=== PATIENT | male | born 1985 | race Caucasian/White ===

== ENCOUNTER 2018-10-02 11:43 | Emergency (ER) | payer OTHER ==
[~2018-10-02] VITALS: Ht 160 cm; Wt 77.6 kg
[~2018-10-02 11:43] MED LIST: AMOX500 PO; ASCO500 PO; Baclofen10 MG PO; Colace100 MG PO; ERYT.5TO RIGHTEYE; LEVSOD100; LEVSOD100 PO; LEVSOD75 PO; LORA10ER; LORA10ER PO; Mupirocin22 GM TP; RXPROM25 PO; Veetids 500500 MG PO; Zofran Odt4 MG PO
[2018-10-02 12:14] LABS: BASOPHILS ABSOLUTE AUTO 0.11 K/mm3 (0.00-0.23); BASOPHILS PERCENT AUTO 1 % (0-2); EOSINOPHILS ABSOLUTE AUTO 0.03 K/mm3 (0.00-0.68); EOSINOPHILS PERCENT AUTO 0 % (0-6); Hematocrit 51.9 % (37.0-53.0); Hemoglobin 17.8 g/dL (13.5-17.5); IMMATURE GRAN ABSOLUTE AUTO 0.05 K/mm3 (0.00-0.10); IMMATURE GRAN PERCENT AUTO 0 % (0-1); LYMPHOCYTES ABSOLUTE AUTO 0.99 K/mm3 (0.84-5.20); LYMPHOCYTES PERCENT AUTO 7 % (21-46); MONOCYTES ABSOLUTE AUTO 0.62 K/mm3 (0.16-1.47); MONOCYTES PERCENT AUTO 4 % (4-13); Mean Corpuscular HGB 32.1 pg (26.0-34.0); Mean Corpuscular HGB Conc 34.3 g/dL (31.5-36.5); Mean Corpuscular Volume 94 fL (80-100); Mean Platelet Volume 9.1 fL (9.1-12.4); NEUTROPHILS ABSOLUTE AUTO 12.22 K/mm3 (1.96-9.15); NEUTROPHILS PERCENT AUTO 87 % (41-73); Platelet Count 298 K/mm3 (150-400); RDW Coefficient Variation 13.8 % (11.7-14.2); RDW Standard Deviation 47.8 fL (35.1-46.3); Red Blood Cell Count 5.55 M/mm3 (4.30-5.90); White Blood Cell Count 14.02 K/mm3 (4.00-11.30)
[2018-10-02 12:39] LABS: Alanine Aminotransfer (ALT/SGP 49 U/L (12-78); Albumin/Globulin Ratio 0.9 (0.8-1.8); Alk Phos 106 U/L (50-136); Anion Gap 7 mmol/L (6-16); Aspartate Aminotrans (AST/SGOT 27 U/L (12-37); Bilirubin, Total 0.4 mg/dL (0.1-1.0); Blood Urea Nitrogen 10 mg/dL (8-24); Bun/Creatinine Ratio 14.2 (12.0-20.0); CO2, Blood 26 mmol/L (21-32); Chloride, Blood 106 mmol/L (98-108); Globulin, Blood 4.3 g/dL (2.2-4.0); Glomerular Filtration Rate >60 (60-); Glucose, Blood 132 mg/dL (70-99); Potassium, Blood 3.8 mmol/L (3.5-5.5); Sodium, Blood 139 mmol/L (136-145); Total Protein, Blood 8.3 g/dL (6.4-8.2)
[2018-10-02] MEDS ORDERED: ERGO400 PO (12:47)
[2018-10-02 13:04] LABS: Source, Urine Clean Catch
[2018-10-02 13:08] LABS: Bilirubin, Urine Neg (Neg); Blood, Urine 1+ (Neg); Glucose Qualitative, Urine Neg (Neg); Ketones, Urine Neg (Neg); Leukocyte Esterase, Urine 1+ (Neg); Nitrite, Urine Neg (Neg); Protein, Urine Neg (Neg); Urobilinogen, Urine 1+ (Normal)
[2018-10-02 13:21] LABS: Appearance, Urine Clear (Clear); Color, Urine Yellow (P-Yellow)
[2018-10-02 13:22] LABS: Bacteria Rare /hpf; Mucus Light (0-Heavy); Red Blood Cells, Urine 0-2 /hpf (0-2); Squamous Epithelial Cells Rare /hpf (Few); White Blood Cells, Urine 0-2 /hpf (0-5)
[2018-10-02] MEDS ORDERED: ONDA4ODT MM (14:54)
== END 2018-10-02 15:19 | disposition home or self-care (01) ==
LOC: ER 11:43
PROVIDERS: Physician Assistant
DX: K59.00 Constipation, unspecified (principal); K43.9 Ventral hernia without obstruction or gangrene; R11.2 Nausea with vomiting, unspecified; E03.9 Hypothyroidism, unspecified; Z88.8 Allergy status to other drugs, medicaments and biological substances; Z79.899 Other long term (current) drug therapy
CPT/HCPCS: 36415; 74176; 80053; 81001; 83690; 85025; 87086; 96361; 96374; 99284-25; J2550; J3010; J7030

== ENCOUNTER 2020-01-02 06:19 | Day surgery (SDC) | payer OTHER ==
[~2020-01-02] VITALS: Ht 160 cm; Wt 74.6 kg
[~2020-01-02 06:19] MED LIST changes: +ERGO400 PO; +ONDA4ODT MM; +TERB250 PO
--- NOTE | 2020-01-02 07:06 | NUR ---
Ambulatory in Day Surgery WITH MOTHER AT SIDE. History, Chart, Medications and Allergies reviewed before start of procedure.Patient confirms NPO status and agrees with scheduled surgery. Patient reports completing Chlorhexadine shower X2 prior to admission to hospital.Surgical site prepped with 2% Chlorhexidine cloth wipe. Patient States Post-Procedure ride home has been arranged WITH MOTHER. MOTHER HAS PT BAG ALONG WITH BILATERAL HEARING AIDS.
--- NOTE | 2020-01-02 08:20 | NUR ---
PT CALLED AND PREMEDICATED. INSTRUCTED TO BRING PT BACK TO [facility] CASE DELAYED DUE TO NEED FOR ANESTHESIOLOGIST TO DO EPIRDERAL IN FAMILY . WILL MONITOR VITALS Q15
--- NOTE | 2020-01-02 12:10 | NUR ---
pt arrived to room 233 from pacu pt is s/p hernia repair with mesh pt is hungry req something to eat mom at bedside pt has midline dressing c/d/i with abd binder oriented to room
--- NOTE | 2020-01-02 17:36 | NUR ---
pt eating dinner
--- NOTE | 2020-01-03 08:08 | NUR ---
SHIFT SUMMARY: BEAN IS A&OX3. HE IS ABLE TO MAKE HIS NEEDS KNOWN. VSS, NO ACUTE EVENTS OVERNIGHT. HE IS URINATING AND HAVING BOWEL MOVEMENTS WITHOUT DIFFICULTY. HE IS A ONE PERSON STANDBY ASSIST TO THE BATHROOM. HE IS TOLERATING PO INTAKE WELL. SCDs IN PLACE. MOTHER AT BEDSIDE. HE USES HIS CALL LIGHT APPROPRIATELY. WILL REPORT TO DAY SHIFT RN.
[2020-01-03] MEDS ORDERED: HYDR1TAB94 PO (10:00)
--- NOTE | 2020-01-03 11:26 | NUR ---
DISCHARGE SUMMARY PT A&OX4, VSS, LEFT FLOOR VIA WC, WITH ALL PERSONAL POSSESSIONS INCLUDING DC PACKET AND 1 NARC SCRIPT. PT AND MOM REP UNDERSTANDING DC INSTRUCTIONS INCLUDING LEAVE DRESSING IN PLACE UNTIL TOMORROW, OK TO REMOVE AND SHOWER, LEAVE STERI STRIPS IN PLACE UNTIL THEY COME OFF ON THEIR OWN IN 7-10 DAYS, AND FU WITH SURGEON. IV DC'D.
== END 2020-01-03 10:41 | disposition home or self-care (01) ==
LOC: ORSCMMR 06:19 → ORD 08:15 → ORSCMMR 08:15 → SURS 11:58 → ORSCMMR 01-03 10:41
PROVIDERS: Surgery
PROC: 0WUF0JZ Supplement Abdominal Wall with Synthetic Substitute, Open Approach (ICD-10-PCS; principal; 2020-01-02 08:15)
DX: K43.0 Incisional hernia with obstruction, without gangrene (principal); Q90.9 Down syndrome, unspecified; Z79.899 Other long term (current) drug therapy
CPT/HCPCS: A9270-GY; C1781; J0330; J0690; J1650; J2250; J3010; J7120

== ENCOUNTER 2021-12-18 09:04 | Day surgery (SDC) | payer OTHER ==
[~2021-12-18] VITALS: Ht 160 cm; Wt 75.4 kg
[~2021-12-18 09:04] MED LIST changes: +HYDR1TAB94 PO
[2021-12-18] MEDS ORDERED: ERGO400 (09:34)
== END 2021-12-18 11:46 | disposition home or self-care (01) ==
LOC: ORSCSDS 09:04
PROVIDERS: Internal Medicine Gastroenterology
PROC: 0DB78ZX Excision of Stomach, Pylorus, Via Natural or Artificial Opening Endoscopic, Diagnostic (ICD-10-PCS; principal; 2021-12-18 10:45)
DX: R10.13 Epigastric pain (principal); R13.10 Dysphagia, unspecified; K29.70 Gastritis, unspecified, without bleeding; R11.10 Vomiting, unspecified; K26.9 Duodenal ulcer, unspecified as acute or chronic, without hemorrhage or perforation; K31.7 Polyp of stomach and duodenum; K44.9 Diaphragmatic hernia without obstruction or gangrene; K22.2 Esophageal obstruction; K31.5 Obstruction of duodenum; E78.5 Hyperlipidemia, unspecified; E03.9 Hypothyroidism, unspecified; Q90.9 Down syndrome, unspecified; Z79.899 Other long term (current) drug therapy
CPT/HCPCS: 88305; 88342; J2704; J7120